=== PATIENT | female | born 1980 | race Two or more races ===

== ENCOUNTER 2023-07-17 05:40 | Day surgery (SDC) | payer OTHER ==
[~2023-07-17 05:40] MED LIST: ACEBUTOLOL HCL200 MG PO
== END 2023-07-17 13:55 | disposition home or self-care (01) ==
LOC: CIR.AMB 05:40
PROVIDERS: ATTEND Colon & Rectal Surgery
DX: K60.3 Anal fistula (principal); K60.5 Anorectal fistula; Z88.6 Allergy status to analgesic agent; Z20.822 Contact with and (suspected) exposure to COVID-19

== ENCOUNTER 2023-12-04 05:45 | Day surgery (SDC) | payer OTHER ==
[2023-12-04] MEDS ORDERED: CEFTRIAXONE SODIUM 2,000 MG VIAL ONE (09:00)
[2023-12-04] MEDS ORDERED: METRONIDAZOLE/SODIUM CHLORIDE 500 MG/100 ML PIGGYBACK IV ONE (09:00)
[2023-12-04] MEDS ORDERED: LIDOCAINE HCL 1%/EPINEPHRINE 20ML VIAL IJ ONE (09:11)
[2023-12-04] MEDS ORDERED: BUPIVACAINE HCL/MPF 0.5% 30ML VIAL ONE (09:11)
[2023-12-04] MEDS ORDERED: HEMOSTATIC MATRIX 1 KIT KIT TOP ONE (09:11)
[2023-12-04] MEDS ORDERED: DIBUCAINE 30 GM TUBE ONE (09:11)
[2023-12-04] MEDS ORDERED: POVIDONE-IODINE 118 ML BOTT TOP ONE (09:11)
== END 2023-12-04 13:20 | disposition home or self-care (01) ==
LOC: CIR.AMB 05:45
PROVIDERS: ATTEND Colon & Rectal Surgery
DX: K60.3 Anal fistula (principal); K60.5 Anorectal fistula; Z88.1 Allergy status to other antibiotic agents; I49.9 Cardiac arrhythmia, unspecified; I34.1 Nonrheumatic mitral (valve) prolapse